=== PATIENT | male | born 1955 | race Caucasian/White ===

== ENCOUNTER 2017-10-19 06:07 | Day surgery (SDC) | payer OTHER ==
[~2017-10-19] VITALS: Ht 185.4 cm; Wt 75.5 kg
[~2017-10-19 06:07] MED LIST: ASCO500 PO; CEPH250A PO; CIPR500 PO; ENOXAPARIN40 MG/0.4 SQ; ERGO400 PO; FENT25TP TOP; HYDR-86; HYDR-86 PO; Hair, Skin & N1 EACH; Hair, Skin & N1 EACH PO; IBUP800 PO; LEVO-T50 MCG; METR500 PO; OMEP20ER PO; ONDA8 PO; PRED5 PO; PROM25 PO
== END 2017-10-19 09:18 | disposition home or self-care (01) ==
LOC: ORSCSDS 06:07
PROVIDERS: Orthopaedic Surgery
PROC: 0YP90YZ Removal of Other Device from Right Lower Extremity, Open Approach (ICD-10-PCS; principal; 2017-10-19 07:30)
DX: Z47.2 Encounter for removal of internal fixation device (principal); M17.11 Unilateral primary osteoarthritis, right knee; E03.9 Hypothyroidism, unspecified; E78.5 Hyperlipidemia, unspecified; Z86.718 Personal history of other venous thrombosis and embolism; F17.210 Nicotine dependence, cigarettes, uncomplicated; Z79.899 Other long term (current) drug therapy
CPT/HCPCS: J0690; J1100; J1885; J2370; J2405; J3010

== ENCOUNTER → 2017-11-05 | Outpatient (CLI) | payer OTHER | LOC: LAB 17:15 → LAB SHORT 17:15 | DX: A49.9 Bacterial infection, unspecified (principal); M17.11 Unilateral primary osteoarthritis, right knee | CPT/HCPCS: 87070; 87075; 87205 ==

== ENCOUNTER 2017-11-30 07:05 | Day surgery (SDC) | payer OTHER ==
[~2017-11-30] VITALS: Ht 185.4 cm; Wt 75.5 kg
== END 2017-11-30 09:44 | disposition home or self-care (01) ==
LOC: ORSCSDS 07:05
DX: M71.38 Other bursal cyst, other site (principal); E03.9 Hypothyroidism, unspecified; Z79.899 Other long term (current) drug therapy; F17.210 Nicotine dependence, cigarettes, uncomplicated
CPT/HCPCS: J0171; J0690; J2250; J7120

== ENCOUNTER 2018-03-23 07:31 | Inpatient (IN) | payer OTHER ==
[~2018-03-23] VITALS: Ht 185.4 cm; Wt 79.4 kg
[~2018-03-23 07:31] MED LIST changes: -LEVO-T50 MCG; +LEVO-T50 MCG PO
[2018-03-23 07:51] LABS: BASOPHILS ABSOLUTE AUTO 0.02 K/mm3 (0.00-0.23); BASOPHILS PERCENT AUTO 0 % (0-2); EOSINOPHILS ABSOLUTE AUTO 0.12 K/mm3 (0.00-0.68); EOSINOPHILS PERCENT AUTO 1 % (0-6); Hematocrit 42.3 % (37.0-53.0); Hemoglobin 14.1 g/dL (13.5-17.5); IMMATURE GRAN ABSOLUTE AUTO 0.03 K/mm3 (0.00-0.10); IMMATURE GRAN PERCENT AUTO 0 % (0-1); LYMPHOCYTES ABSOLUTE AUTO 0.66 K/mm3 (0.84-5.20); LYMPHOCYTES PERCENT AUTO 6 % (21-46); MONOCYTES ABSOLUTE AUTO 0.86 K/mm3 (0.16-1.47); MONOCYTES PERCENT AUTO 8 % (4-13); Mean Corpuscular HGB 32.9 pg (26.0-34.0); Mean Corpuscular HGB Conc 33.3 g/dL (31.5-36.5); Mean Corpuscular Volume 99 fL (80-100); Mean Platelet Volume 9.8 fL (9.1-12.4); NEUTROPHILS ABSOLUTE AUTO 9.51 K/mm3 (1.96-9.15); NEUTROPHILS PERCENT AUTO 85 % (41-73); Platelet Count 206 K/mm3 (150-400); RDW Coefficient Variation 13.8 % (11.7-14.2); RDW Standard Deviation 50.4 fL (35.1-46.3); Red Blood Cell Count 4.29 M/mm3 (4.30-5.90)
[2018-03-23 08:02] LABS: Alanine Aminotransfer (ALT/SGP 21 U/L (12-78); Albumin, Blood 3.6 g/dL (3.4-5.0); Albumin/Globulin Ratio 0.7 (0.8-1.8); Alk Phos 72 U/L (50-136); Anion Gap 9 mmol/L (6-16); Aspartate Aminotrans (AST/SGOT 18 U/L (12-37); Bilirubin, Total 0.5 mg/dL (0.1-1.0); Blood Urea Nitrogen 20 mg/dL (8-24); Bun/Creatinine Ratio 23.4 (12.0-20.0); CO2, Blood 23 mmol/L (21-32); Calcium, Blood 8.3 mg/dL (8.5-10.1); Chloride, Blood 106 mmol/L (98-108); Creatinine, Blood 0.85 mg/dL (0.60-1.20); Glomerular Filtration Rate >60 (60-); Glucose, Blood 114 mg/dL (70-99); Potassium, Blood 3.4 mmol/L (3.5-5.5); Sodium, Blood 138 mmol/L (136-145); Total Protein, Blood 8.6 g/dL (6.4-8.2)
[2018-03-24 04:28] LABS: Hematocrit 36.8 % (37.0-53.0); Hemoglobin 12.2 g/dL (13.5-17.5); Mean Corpuscular HGB 32.9 pg (26.0-34.0); Mean Corpuscular HGB Conc 33.2 g/dL (31.5-36.5); Mean Corpuscular Volume 99 fL (80-100); Mean Platelet Volume 10.2 fL (9.1-12.4); Platelet Count 177 K/mm3 (150-400); RDW Standard Deviation 51.4 fL (35.1-46.3); Red Blood Cell Count 3.71 M/mm3 (4.30-5.90); White Blood Cell Count 10.12 K/mm3 (4.00-11.30)
[2018-03-24 04:57] LABS: Anion Gap 7 mmol/L (6-16); Blood Urea Nitrogen 13 mg/dL (8-24); Bun/Creatinine Ratio 13.6 (12.0-20.0); CO2, Blood 26 mmol/L (21-32); Chloride, Blood 104 mmol/L (98-108); Creatinine, Blood 0.96 mg/dL (0.60-1.20); Glomerular Filtration Rate >60 (60-); Glucose, Blood 99 mg/dL (70-99); Magnesium, Blood 1.9 mg/dL (1.6-2.4); Potassium, Blood 3.5 mmol/L (3.5-5.5); Sodium, Blood 137 mmol/L (136-145)
[2018-03-25 04:46] LABS: BASOPHILS ABSOLUTE AUTO 0.01 K/mm3 (0.00-0.23); BASOPHILS PERCENT AUTO 0 % (0-2); EOSINOPHILS ABSOLUTE AUTO 0.15 K/mm3 (0.00-0.68); EOSINOPHILS PERCENT AUTO 2 % (0-6); Hematocrit 37.3 % (37.0-53.0); Hemoglobin 12.3 g/dL (13.5-17.5); IMMATURE GRAN ABSOLUTE AUTO 0.05 K/mm3 (0.00-0.10); IMMATURE GRAN PERCENT AUTO 1 % (0-1); LYMPHOCYTES ABSOLUTE AUTO 0.69 K/mm3 (0.84-5.20); LYMPHOCYTES PERCENT AUTO 7 % (21-46); MONOCYTES ABSOLUTE AUTO 0.75 K/mm3 (0.16-1.47); MONOCYTES PERCENT AUTO 8 % (4-13); Mean Corpuscular HGB 33.4 pg (26.0-34.0); Mean Corpuscular Volume 101 fL (80-100); Mean Platelet Volume 10.2 fL (9.1-12.4); NEUTROPHILS ABSOLUTE AUTO 8.01 K/mm3 (1.96-9.15); NEUTROPHILS PERCENT AUTO 83 % (41-73); Platelet Count 174 K/mm3 (150-400); RDW Coefficient Variation 13.8 % (11.7-14.2); RDW Standard Deviation 52.1 fL (35.1-46.3); Red Blood Cell Count 3.68 M/mm3 (4.30-5.90); White Blood Cell Count 9.66 K/mm3 (4.00-11.30)
[2018-03-25] MEDS ORDERED: DOCU100 PO (15:34)
[2018-03-25] MEDS ORDERED: ACET325 PO (15:34)
[2018-03-25] MEDS ORDERED: NICO21TP TOP (15:35)
[2018-03-25] MEDS ORDERED: AMOX875 PO (15:36)
== END 2018-03-25 16:05 | disposition home or self-care (01) | DRG 392 ==
LOC: ER 07:31 → SURS 10:54
PROVIDERS: Internal Medicine; Physician Assistant; Surgery
DX: K57.20 Diverticulitis of large intestine with perforation and abscess without bleeding (principal); E87.6 Hypokalemia; E03.9 Hypothyroidism, unspecified; R09.02 Hypoxemia; E78.5 Hyperlipidemia, unspecified; F17.200 Nicotine dependence, unspecified, uncomplicated; Z66 Do not resuscitate; Z85.810 Personal history of malignant neoplasm of tongue; Z92.21 Personal history of antineoplastic chemotherapy; Z92.3 Personal history of irradiation; Z86.718 Personal history of other venous thrombosis and embolism; Z79.899 Other long term (current) drug therapy
CPT/HCPCS: 36415; 71046; 74177; 80048; 80053; 83690; 83735; 85025; 85027; 94762; 96374; 96375; 96376; 99285-25; J0295; J1170; J2405; J2543; J3480; J7120; Q9967

== ENCOUNTER 2018-07-11 08:55 | Day surgery (SDC) | payer OTHER ==
[~2018-07-11] VITALS: Ht 185.4 cm; Wt 75.2 kg
[~2018-07-11 08:55] MED LIST changes: +ACET325 PO; +AMOX875 PO; +DOCU100 PO; +NICO21TP TOP; +TIZANIDINE HCL4 MG PO; +[UNRECOGNIZED DRUG - OTHER]; +[UNRECOGNIZED DRUG - OTHER] TOP
--- NOTE | 2018-07-11 09:53 | NUR ---
07/11/18 0952 Eunice Gill PT TEACHING COMPLETED AT THIS TIME. PT UPDATED OF ESTIMATED TIME LIMIT. CALL LIGHT WITHIN REACH.
--- NOTE | 2018-07-11 10:35 | NUR ---
07/11/18 1035 Tiffany Bush VSS T/O CASE (SEE BRYANT SHEET). PATIENT TAKEN TO SDU WITHOUT S/S DISTRESS OR COMPLAINTS. APPEARED TO TOLERATE PROCEDURE WITOUT DIFFICULTY. ALERT, CONVERSIVE.
--- NOTE | 2018-07-11 10:58 | NUR ---
07/11/18 [id number] Lazaro Olvera PATIENT IN SDU RECLINER RESTING COMFORTABLY, BROTHER IN LAW (MORE) IS AT CHAIRSIDE. PATIENT VSS, TOLERATING PO FLUIDS WELL, NO COMPLAINTS AT THIS TIME. DISCHARGE INSTRUCTIONS REVIEWED WITH PATIENT AND BROTHER IN LAW, BOTH DENY HAVING ANY QUESTIONS AT THIS MOMENT. NURSE ASSISTED PATIENT EXIT TO LOBBY
== END 2018-07-11 10:44 | disposition home or self-care (01) ==
LOC: ORSCSDS 08:55
PROVIDERS: Anesthesiology
PROC: 3E0R33Z Introduction of Anti-inflammatory into Spinal Canal, Percutaneous Approach (ICD-10-PCS; principal; 2018-07-11 10:00)
DX: M54.12 Radiculopathy, cervical region (principal); M48.02 Spinal stenosis, cervical region; E78.00 Pure hypercholesterolemia, unspecified; E03.9 Hypothyroidism, unspecified; M85.80 Other specified disorders of bone density and structure, unspecified site; F17.210 Nicotine dependence, cigarettes, uncomplicated; Z79.899 Other long term (current) drug therapy
CPT/HCPCS: J1040; J2250; J3010; J7120

== ENCOUNTER 2020-06-25 05:57 | Day surgery (SDC) | payer MEDICARE, OTHER ==
[~2020-06-25] VITALS: Ht 185.4 cm; Wt 68.1 kg
[~2020-06-25 05:57] MED LIST changes: +ANTIBIOTIC; +BENADRYL25 MG PO; +GABA300 PO; +LEVAQUIN750 MG PO; +POTA10T PO
--- NOTE | 2020-06-25 06:29 | NUR ---
Ambulatory in Day Surgery. Surgical site prepped with 2% Chlorhexidine cloth wipe. Rosa Paws warming gown applied. History, Chart, Medications and Allergies reviewed before start of procedure.Lungs clear T/O to Auscultation. Patient confirms NPO status and agrees with scheduled surgery. Pre-Op teaching done. Pt verbalizes understanding. Patient States Post-Procedure ride home has been arranged. Patient reports completing Chlorhexadine shower X2 prior to admission to hospital.
--- NOTE | 2020-06-25 09:12 | NUR ---
Patient up to Ambulate independently. Gait steady. Discharge instructions reviewed with patient. Patient verbalizes understanding. Copy given to patient to take home. Discharged via wheelchair to private car for ride home WITH
== END 2020-06-25 23:25 | disposition home or self-care (01) ==
LOC: ORSCMMR 05:57 → ORD 07:30 → ORSCMMR 07:30
PROVIDERS: Surgery
PROC: 05HM33Z Insertion of Infusion Device into Right Internal Jugular Vein, Percutaneous Approach (ICD-10-PCS; principal; 2020-06-25 07:30)
PROC: B5131ZA Fluoroscopy of Right Jugular Veins using Low Osmolar Contrast, Guidance (ICD-10-PCS; principal; 2020-06-25 07:30)
DX: C34.90 Malignant neoplasm of unspecified part of unspecified bronchus or lung (principal); C78.7 Secondary malignant neoplasm of liver and intrahepatic bile duct; E03.9 Hypothyroidism, unspecified; F17.210 Nicotine dependence, cigarettes, uncomplicated; Z79.899 Other long term (current) drug therapy
CPT/HCPCS: 77001; C1788; J0690; J1642; J2250; J2704; J3010; J7120

== ENCOUNTER 2021-07-03 13:55 | Emergency (ER) | payer MEDICARE, OTHER ==
[~2021-07-03] VITALS: Ht 185.4 cm; Wt 77.1 kg
[2021-07-03 15:00] LABS: BASOPHILS ABSOLUTE AUTO 0.04 K/mm3 (0.00-0.23); BASOPHILS PERCENT AUTO 1 % (0-2); EOSINOPHILS PERCENT AUTO 2 % (0-6); Hematocrit 37.4 % (37.0-53.0); Hemoglobin 12.5 g/dL (13.5-17.5); IMMATURE GRAN ABSOLUTE AUTO 0.02 K/mm3 (0.00-0.10); IMMATURE GRAN PERCENT AUTO 0 % (0-1); LYMPHOCYTES ABSOLUTE AUTO 0.78 K/mm3 (0.84-5.20); LYMPHOCYTES PERCENT AUTO 16 % (21-46); MONOCYTES PERCENT AUTO 19 % (4-13); Mean Corpuscular HGB 35.2 pg (26.0-34.0); Mean Corpuscular HGB Conc 33.4 g/dL (31.5-36.5); Mean Corpuscular Volume 105 fL (80-100); Mean Platelet Volume 9.8 fL (9.1-12.4); NEUTROPHILS ABSOLUTE AUTO 3.01 K/mm3 (1.96-9.15); NEUTROPHILS PERCENT AUTO 62 % (41-73); Platelet Count 214 K/mm3 (150-400); RDW Coefficient Variation 16.1 % (11.7-14.2); RDW Standard Deviation 63.8 fL (35.1-46.3); Red Blood Cell Count 3.55 M/mm3 (4.30-5.90); White Blood Cell Count 4.85 K/mm3 (4.00-11.30)
[2021-07-03 15:21] LABS: Alanine Aminotransfer (ALT/SGP 16 U/L (12-78); Albumin, Blood 3.3 g/dL (3.4-5.0); Albumin/Globulin Ratio 0.8 (0.8-1.8); Alk Phos 48 U/L (50-136); Anion Gap 4 mmol/L (6-16); Aspartate Aminotrans (AST/SGOT 14 U/L (12-37); Bilirubin, Total 0.4 mg/dL (0.1-1.0); Blood Urea Nitrogen 15 mg/dL (8-24); Bun/Creatinine Ratio 17.2 (12.0-20.0); CO2, Blood 28 mmol/L (21-32); Chloride, Blood 111 mmol/L (98-108); Creatinine, Blood 0.87 mg/dL (0.60-1.20); Globulin, Blood 4.3 g/dL (2.2-4.0); Glomerular Filtration Rate >60 (60-); Glucose, Blood 113 mg/dL (70-99); Magnesium, Blood 2.2 mg/dL (1.6-2.4); Potassium, Blood 3.2 mmol/L (3.5-5.5); Sodium, Blood 143 mmol/L (136-145); Total Protein, Blood 7.6 g/dL (6.4-8.2)
[2021-07-03 16:14] LABS: Source, Urine Voided
[2021-07-03 16:16] LABS: Appearance, Urine Hazy (Clear); Bilirubin, Urine Neg (Neg); Blood, Urine Neg (Neg); Color, Urine Yellow (P-Yellow); Glucose Qualitative, Urine Neg (Neg); Ketones, Urine Neg (Neg); Leukocyte Esterase, Urine Neg (Neg); Nitrite, Urine Neg (Neg); Protein, Urine Neg (Neg); Specific Gravity, Urine 1.015 (1.003-1.022); Urobilinogen, Urine NORM (Normal)
[2021-07-03 16:23] LABS: Bacteria Rare /hpf; Red Blood Cells, Urine 0-2 /hpf (0-2); Squamous Epithelial Cells Rare /hpf (Few); White Blood Cells, Urine 0-2 /hpf (0-5)
[2021-07-05] MEDS ORDERED: KEPPRA250 M1 PO (13:00)
[2021-07-05] MEDS ORDERED: Ativan0.5 MG PO (13:00)
== END 2021-07-03 19:29 | disposition home or self-care (01) ==
LOC: ER 13:55
PROVIDERS: Emergency Medicine
DX: R41.0 Disorientation, unspecified (principal); R53.1 Weakness; R25.9 Unspecified abnormal involuntary movements; E03.9 Hypothyroidism, unspecified; E78.5 Hyperlipidemia, unspecified
CPT/HCPCS: 70470; 80053; 81001; 83735; 85025; 99285-25; A9270; Q9967